=== PATIENT | male | born 1960 ===

== ENCOUNTER 2017-09-18 01:18 | Inpatient (IN) | payer OTHER ==
[~2017-09-18] VITALS: Ht 177.8 cm; Wt 90.7 kg
--- NOTE | 2017-09-18 10:56 | Admission Core Measures ---
Acute Coronary Syndrome (CM) ACS Core Measures Acute Coronary Syndrome Diagnosis No Congestive Heart Failure (NEW) CHF Core Measures Congestive Heart Failure Diagnosis No Cerebrovascular Accident (NEW) CVA Core Measures CVA/TIA Diagnosis No Venous Thromboembolism VTE Core Ham (View Protocol) VTE Risk Factors Surgery No Mechanical VTE Prophylaxis d/t N/A MechProphylax Ordered No VTE Pharm Prophylaxis d/t NA PharmProphylax ordered Problem List As ranked by this Provider includes Assessment & Plan 1. Unilateral primary osteoarthritis, left knee HOME MEDS Home Med List No Known Home Medications
--- NOTE | 2017-09-18 10:56 | Surgical Discharge Summary ---
Visit Information Visit Dates Admission Date: 09/18/17 Discharge Date: 09/20/17 History of Present Illness Chief Complaint: LEFT KNEE PAIN Surgical History Pertinent Surgical History: non-contributory Review of Systems: PER [facility] Hospital Course Course Attending Physician: Casimiro Mckinnon MD Primary Care Physician: Jorje Heart MD Hospital Course: PT PRESENTED TO [facility] ON 09/18/17 FOR ELECTIVE LEFT TOTAL KNEE REPLACEMENT BY DR. MCKINNON. PT TOLERATED PRECEDURE WELL. HE HAD AN ADDUCTOR BLOCK FOR POST-OP PAIN MANAGEMENT. POST-OPERATIVELY HE TOLERATED A REGULAR DIET , WAS VOIDING SPONTANEOUSLY, WAS CLEARED BY PHYSICAL THERAPY AND HIS PAIN WAS UNDER CONTROL WITH ORAL MEDICATION. HE WAS GIVEN PRESCRIPTIONS FOR PAIN, DVT PROPHYLAXIS AND CONSTIPATION. ON DISCHARGE AND WAS INSTRUCTED TO FOLLOW-UP WITH DR MCKINNON IN 6 WEEKS AND INSTRUCTED TO CALL HIS OFFICE WITH ANY QUESTIONS OR CONCERNS. DISCHARGE INSTRUCTIONS WERE REVIEWED WITH THE PATIENT. Complications: None Allergies: Coded Allergies: No Known Allergies (09/14/17) Disposition Summary Disposition Principal Diagnosis: LEFT KNEE OA Additional Diagnosis: SP L TKA Discharge Disposition: home health services Discharge Instructions General Discharge Information Code Status: Full Code Patient's Diet: REGULAR Patient's Activity: WBAT WITH ROLLING WALKER Follow-Up Instructions/Appts: FU WITH DR. MCKINNON IN 6 WEEKS Medications at Discharge Discharge Medications: Start taking the following new medications: Aspirin (Ecotrin*) 325 MG TABLET. 1 Tablet ORAL TWICE DAILY Qty = 60 No Refills Docusate Sodium (Colace) 100 MG CAPSULE 1 Capsule ORAL TWICE DAILY Qty = 14 No Refills Instructions: STOP TAKING IF YOU DEVELOP LOOSE STOOL/DIARRHEA Hydromorphone HCl (Dilaudid) 2 MG TABLET 1-2 Tablet ORAL EVERY 4-6 HOURS NEEDED as needed for PAIN Qty = 36 No Refills Polyethylene Glycol 3350 (Miralax) 17 GRAM POWD.PACK 1 Packet ORAL DAILY Qty = 7 No Refills Instructions: dissolve in water. STOP TAKING IF YOU DEVELOP LOOSE STOOL/DIARRHEA Morphine Sulfate (Ms Contin) 15 MG TABLET.ER 1 Tablet ORAL TWICE DAILY Qty = 5 No Refills Pantoprazole Sodium (Protonix) 20 MG TABLET.DR 1 Tablet ORAL DAILY Qty = 30 No Refills Copies To: Sly CORTES,Jorje Cosby
[2017-09-18] MEDS ORDERED: MIRALAX17 G1 PO (11:03)
[2017-09-18] MEDS ORDERED: PROTONIX20 M1 PO (11:03)
[2017-09-18] MEDS ORDERED: COLACE100 M1 PO (11:03)
[2017-09-18] MEDS ORDERED: ASPIRIN EC325 M2 PO (11:03)
[2017-09-18] MEDS ORDERED: DILAUDID2 M1 PO (11:03)
[2017-09-18] MEDS ORDERED: MS CONTIN15 M3 PO (11:03)
--- NOTE | 2017-09-18 11:09 | Patient Discharge Instructions ---
Discharge Instructions General Discharge Information You were seen/treated for: left knee pain You had these procedures: left total knee replacement Watch for these problems: fever over 100.4 redness around or drainage from wound unable to bear weight on left leg chest pain or shortness of breath No bath, but you may shower: Yes Other wound care: keep wound clean and dry Special Instructions: do not drive while taking pain medication Diet Continue normal diet: Yes Activity Activity Limited to: Weight bear as tolerated (with rolling walker) Acute Coronary Syndrome Inclusion Criteria At DC or during hospital stay patient has or had the following: ACS DIAGNOSIS No Discharge Core Measures Meds if any: Prescribed or Continued at Discharge Meds if any: NOT Prescribed or Continued at Discharge Congestive Heart Failure Inclusion Criteria At DC or during hospital stay patient has or had the following: CHF DIAGNOSIS No Discharge Core Measures Meds if any: Prescribed or Continued at Discharge Meds if any: NOT Prescribed or Continued at Discharge Cerebrovascular accident Inclusion Criteria At DC or during hospital stay patient has or had the following: CVA/TIA Diagnosis No Discharge Core Measures Meds if any: Prescribed or Continued at Discharge Meds if any: NOT Prescribed or Continued at Discharge Venous thromboembolism Inclusion Criteria VTE Diagnosis No VTE Type NONE VTE Confirmed by (Test) NONE Discharge Core Measures - Per Current guidelines, there needs to be overlap - treatment for the first 5 days of Warfarin therapy. - If discharged on Warfarin prior to 5 days of - overlap therapy, the patient will need to be - assessed for post discharge needs including - *Post discharge parental anticoagulation - *Warfarin and/or parental anticoagulation education - *Follow up date to check INR post discharge At least 5 days overlap therapy as Inpatient No Meds if any: Prescribed or Continued at Discharge Note: Overlap Therapy is Warfarin and Anticoagulant Meds if any: NOT Prescribed or Continued at Discharge
[2017-09-18 14:20] VITALS: BP 140/82
--- NOTE | 2017-09-18 14:38 | Operative Report ---
Operative/Inv Procedure Report Surgery Date: 09/18/17 Name of Procedure: 1. Left total knee replacement 2. Right knee cortisone injection Pre-Operative Diagnosis: Bilateral primary knee DJD Post-Operative Diagnosis: Same Estimated Blood Loss: 50ml to 100ml Surgeon/General Foreman: Lexus CORTES,Casimiro Wilson Anesthesia: block Operative/Procedure Note Note: Description of Procedure: The patient was taken to the operating room and positively identified. After induction of spinal anesthesia and administration of appropriate pre-operative antibiotics, the patient was positioned supine on the operating room table and all bony prominences were well padded. The right knee was prepped sterilely and injected with a mixture of 2 mL of Depo -Medrol and 6 mL of half percent Marcaine. A Band-Aid was placed over the injection site. Attention was then turned to the left lower extremity. A well-padded pneumatic tourniquet was placed on the left upper thigh. After performing a surgical timeout, the left lower extremity was prepped and draped in the usual sterile fashion. After exsanguination with Esmarch the tourniquet was inflated to 250mm of mercury. A standard medial parapatellar approach was made to the knee. This was carried down through skin and subcutaneous tissue to the level of the fascia. Meticulous hemostasis was maintained with Bovie electrocautery. The extensor mechanism and patellar retinaculum were opened sharply and the patella was everted. The infrapatellar fat was resected in order to improve exposure. Osteophytes were trimmed from the patella and femoral condyles and the patella was re-everted and tucked laterally. A medial release was performed and the cruciate ligaments were resected. The tibia was then subluxed anteriorly. Utilizing the appropriate extra-medullary guide, the proximal tibia was trimmed perpendicular to the long axis of the tibial shaft. Attention was then turned to the femur. After opening the medullary canal, the distal femoral cut was made in 6 degrees of valgus utilizing the appropriate intra-medullary guide. The extension gap was checked and found to be appropriate. The femur was then sized and the remainder of the femoral cuts were made with a size 7 4-in-1 femoral cutting guide. The flexion gap was checked and found to be symmetric and appropriate. The knee was then trialed with a size 7 femoral component, a size 7 tibial component and a size 16 mm TS polyethylene insert. The patella was trimmed to accept an A 38 patella. This yielded excellent range of motion, stability and patellar tracking. All trial components were removed and the knee was copiously irrigated with sterile saline. All components were cemented into place with Yoder Simplex cement. All the components were of the [employer] Triathlon knee system of the above stated sizes. The knee was again irrigated after cementation. The extensor mechanism and patellar retinaculum were repaired using interrupted #1 vicryl suture. The skin was re-approximated with 2-0 vicryl and closed with rosita. A sterile dressing was applied, the tourniquet was deflated, the patient was awakened and taken to the recovery room in satisfactory condition.
--- NOTE | 2017-09-18 14:59 | PN- Orthopedic ---
Subjective Subjective: POC S/P LEFT TKA C/O 7/10 PAIN IN LEFT KNEE ON THE FRONT PART DENIES CP, SOB, NO N+V Objective Vital Signs and I&Os Vital Signs Date Time Temp Pulse Resp B/P B/P Pulse O2 O2 Flow FiO2 Mean Ox Delivery Rate 09/18 1420 97.0 76 18 140/82 97 Room Air Physical Exam: CV: RRR LUNGS; CLEAR ABD: SOFT, +BS EXT: DRSG DRY DISTAL MOTOR INTACT DECREASED SENSORY DUE TO NERVE BLOCK Assessment/Plan Assessment/Plan ORTHO STABLE PLAN OOB THIS AFTERNOON WITH PT TITRATE PAIN MEDS ADVANCE DIET HOME D/C PLANNING Core Measures Venous Thromboembolism VTE Risk Factors Surgery No Mechanical VTE Prophylaxis d/t N/A MechProphylax Ordered No VTE Pharm Prophylaxis d/t NA PharmProphylax ordered
[2017-09-18 20:35] VITALS: BP 132/80
[2017-09-19 00:35] VITALS: BP 118/66
[2017-09-19 04:18] VITALS: BP 108/64
--- NOTE | 2017-09-19 07:29 | PN- Orthopedic ---
Subjective Subjective: Pain well controlled in the left knee, no fever, no flulike illness, no acute instruments overnight. Overall he is feeling well Objective Vital Signs and I&Os Vital Signs Date Time Temp Pulse Resp B/P B/P Pulse O2 O2 Flow FiO2 Mean Ox Delivery Rate 09/19 0418 98.3 85 18 108/64 96 Room Air 09/19 0035 98.3 89 20 118/66 95 Room Air 09/18 2035 98.0 94 20 132/80 95 Room Air 09/18 1420 97.0 76 18 140/82 97 Room Air Intake & Output 09/19 0800 09/19 0000 09/18 1600 09/18 0800 09/18 0000 09/17 1600 Intake Total 100 150 Output Total 350 2000 Balance -250 -1850 Intake, IV 100 150 Output, Urine 350 1999 Patient 200 lb Weight Weight Reported by Patient Measurement Method Physical Exam: Well-developed well-nourished no apparent distress. HEENT: Atraumatic, extraocular motion intact Neck: Supple, no lymphadenopathy Respiratory: No respiratory distress Extremities: No edema LEFT lower extremity dressing in place, Range of motion is 0-80. Compression wrap in place. ALPS in place Neurovascularly intact distally Bilateral calves are supple, nontender. Neuro: Alert and oriented x3 Psych: Mood affect normal, normal memory normal judgment. Skin: Warm and dry, no rash on exposed skin Results Last 48 Hours of Labs: Laboratory Tests 09/19 0647 Chemistry Sodium Pending Potassium Pending Chloride Pending Carbon Dioxide Pending Anion Gap Pending BUN Pending Creatinine Pending BUN/Creatinine Ratio Pending Hematology CBC w Diff Pending WBC Pending RBC Pending Hgb Pending Hct Pending MCV Pending MCH Pending MCHC Pending RDW Pending Plt Count Pending MPV Pending Assessment/Plan Assessment/Plan Postop day 1 status post left total knee arthroplasty Perioperative antibiotics. Pain medication as needed. Out of bed Physical therapy, weightbearing as tolerated DC IV fluids Regular diet Follow a.m. labs Aspirin for DVT prophylaxis ALPS for DVT prophylaxis Regular home meds Dressing change postop day 2 anticipate discharge home tomorrow with VNA services Core Measures Venous Thromboembolism VTE Risk Factors Surgery No Mechanical VTE Prophylaxis d/t N/A MechProphylax Ordered No VTE Pharm Prophylaxis d/t NA PharmProphylax ordered
[2017-09-19 08:00] VITALS: BP 118/58
[2017-09-19 08:07] LABS: ABSOLUTE BASOPHIL COUNT 0 /CUMM (0.0-0.2); ABSOLUTE EOSINOPHIL COUNT 0 /CUMM (0.0-0.7); ABSOLUTE GRANULOCYTE CT 9.3 /CUMM (1.4-6.5); ABSOLUTE LYMPH COUNT 1.3 /CUMM (1.2-3.4); ABSOLUTE MONOCYTE COUNT 0.8 /CUMM (0.10-0.60); BASOPHIL % 0.2 % (0.0-2.0); EOSINOPHIL % 0 % (0-5); HEMATOCRIT 35.7 % (42-52); MEAN CORPUSCULAR HGB 32.2 PG (27.0-31.0); MEAN CORPUSCULAR HGB CONC 34.2 G/DL (33.0-37.0); MEAN CORPUSCULAR VOLUME 94.1 FL (80.0-94.0); MEAN PLATELET VOLUME 8.2 FL (7.4-10.4); PLATELET COUNT 189 /CUMM (130-400); RBC DISTRIBUTION WIDTH 13.2 % (11.5-14.5); WHITE BLOOD CELL COUNT 11.4 /CUMM (4.8-10.8)
[2017-09-19 09:41] LABS: GRANULOCYTE % 81.2 % (42.2-75.2)
[2017-09-19 14:38] VITALS: BP 116/52
[2017-09-19 16:34] VITALS: BP 118/70
[2017-09-19 21:53] VITALS: BP 118/70
[2017-09-20 00:46] VITALS: BP 106/56
[2017-09-20 06:16] VITALS: BP 112/64
--- NOTE | 2017-09-20 07:16 | PN- Orthopedic ---
Subjective Subjective: Reports pain controlled with dilaudid. Doing well getting out of bed and walking. No dizziness. No shortness of breath. No chest pains. Eager to go home today. Objective Vital Signs and I&Os Vital Signs Date Time Temp Pulse Resp B/P B/P Pulse O2 O2 Flow FiO2 Mean Ox Delivery Rate 09/20 0616 98.5 84 20 112/64 94 Room Air 09/20 0046 98.3 77 20 106/56 96 Room Air 09/19 2153 98.1 90 20 118/70 96 Room Air 09/19 1634 98.0 84 20 118/70 97 Room Air 09/19 1438 98.2 79 20 116/52 96 Room Air 09/19 0923 Room Air Room Air 09/19 0800 98.0 90 18 118/58 97 Room Air Intake & Output 09/20 0800 16 0000 09/19 1600 09/19 0800 09/19 0000 09/18 1600 Intake Total 850 100 150 Output Total 319 180 0479 Balance 600 -250 -1850 Intake, IV 10 100 150 Intake, Oral 840 Output, Urine 216 749 1170 Patient 200 lb Weight Weight Reported by Patient Measurement Method Physical Exam: General - alert & oriented x 3. comfortable. no acute distress. Lungs - clear bilaterally. no w/r/r Cardiac - s1s2. reg. Abdomen - soft. nontender Extremities - warm bilaterally. left knee dressing changed. incision well approximated. no erythema. no exudates. calves soft and nontender b/l. nvi. Assessment/Plan Assessment/Plan This 57 year old male is POD#2 s/p left total knee arthroplasty tolerating diet pain controlled oob/ambulating without difficulty dressing changed continue PT continue asa - dvt ppx bowel regime in place d/c home today with vna services will d/w Core Measures Venous Thromboembolism VTE Risk Factors Surgery No Mechanical VTE Prophylaxis d/t N/A MechProphylax Ordered No VTE Pharm Prophylaxis d/t NA PharmProphylax ordered
--- NOTE | 2017-09-20 11:32 | ULTRASOUND REPORT ---
EXAMINATION: US TRIPLEX LOWER EXTREMITY, LEFT CLINICAL INFORMATION: Left lower extremity swelling and calf tenderness COMPARISON: None TECHNIQUE: Color-flow triplex imaging with spectral analysis and compression Doppler were performed on the lower extremity. FINDINGS: Respiratory variation, normal compression and augmented flow are noted throughout the lower extremity. The visualized common femoral vein, superficial femoral vein, profunda femoral vein, popliteal vein and midcalf peroneal and posterior tibial venous segments show no evidence of deep venous thrombosis. There is no Bartholomew's cyst. IMPRESSION: Normal triplex scan without evidence of deep venous thrombosis involving the lower extremity.
== END 2017-09-20 12:48 | disposition home health service (06) | DRG 470 ==
LOC: SDA 01:18 → ENRESERV 13:29 → ENTRNSPT 14:06 → EDTRNSPTSTS 14:07 → EDTRNSPT 14:07 → 2NB 14:15 → CMPTRNSPT 14:16 → ENPENDDIS 09-20 07:18 → ENTRNSPT 09-20 12:31 → EDTRNSPTSTS 09-20 12:43 → EDTRNSPT 09-20 12:43 → 2NB 09-20 12:48 → CMPTRNSPT 09-20 13:03
PROVIDERS: Physician Assistant Surgical
PROC: 0SRD0J9 Replacement of Left Knee Joint with Synthetic Substitute, Cemented, Open Approach (ICD-10-PCS; principal; 2017-09-18)
PROC: 3E0T3BZ Introduction of Anesthetic Agent into Peripheral Nerves and Plexi, Percutaneous Approach (ICD-10-PCS; principal; 2017-09-18)
DX: M17.12 Unilateral primary osteoarthritis, left knee (principal)
CPT/HCPCS: 2NSBP; 36592; 82436; 97110-GO; 97116-GO; 97161-GP; 97530-GO; C1713; J0131; J0690; J1030; J1100; J1885; J2405; J3490; J7042